=== PATIENT | female | born 1960 | race Caucasian/White ===

== ENCOUNTER 2017-06-30 16:47 | Inpatient (IN) | payer MEDICARE ==
[2017-06-30] MEDS ORDERED: Dextrose 5% in Water 1,000 ML IV PRN (16:56)
[2017-06-30] MEDS ORDERED: Dextrose 50% Abboject 50 ML SYRINGE SLOW IVP PRN (16:56)
[2017-06-30] MEDS ORDERED: Ondansetron HCl/PF 4 MG/2 ML Vial IVP PRN (16:56)
[2017-06-30] MEDS ORDERED: Ondansetron ODT 4 MG TAB PO PRN (16:56)
[2017-06-30] MEDS ORDERED: Rib Fracture Protocol PO SCH (17:00)
[2017-06-30] MEDS ORDERED: Cyclobenzaprine 10 MG TAB PO PRN (18:00)
[2017-06-30 18:09] VITALS: BMI 26.8
[2017-06-30] MEDS: Ibuprofen 800 MG TAB PO SCH (19:23)
[2017-06-30] MEDS: traMADol HCl 50 MG TAB PO SCH (19:23)
[2017-06-30] MEDS: Acetaminophen 500 MG TAB PO SCH (19:24)
--- NOTE | 2017-06-30 19:57 | RAD ---
SINGLE VIEW OF THE CHEST: 06/30/17 COMPARISON: None. HISTORY: Rib fractures and pneumothorax. FINDINGS: Single view of the chest shows a normal sized cardiomediastinal silhouette. There is surgical clips projecting over the mid portion of the thorax. Hardware is seen in the cervical spine. No displaced rib fractures are seen. No underlying pleural thickening or pneumothorax are appreciated. There is n o evidence of consolidation, mass, or pleural effusion. IMPRESSION: Unremarkable exam. POS: H
--- NOTE | 2017-06-30 20:00 | HP ---
DATE OF ADMISSION: 06/30/2017 ATTENDING PHYSICIAN: Kaveh Weber D.O. TRAUMA ACTIVATION: Not applicable. HISTORY OF PRESENT ILLNESS: Dahlia Obregon is a 56-year-old female, who presented to [facility] as a [place] transfer. Per patient, she was letting her pets outside last night when she slippe d and fell. She had felt some chest discomfort, took an extra strength Tylenol and went to bed. Th is morning, she woke up and was short of breath. She presented to [facility] where she was evaluated and found to have multiple left rib fractures with a small pneumothorax. She was transfe rred to [facility] for further care. Upon arrival at our facility, the patient has a chief complaint of chest discomfort 07/19. She is hemodynamically stable. Her O2 sats are 97% on room a ir. ALLERGIES: None. HOME MEDICATIONS: Include pantoprazole, full strength aspirin, lamotrigine, Xanax p.r.n., Lexapro, vitamin D, vitamin E and stool softener. is bringing a medication with doses for reconcilia tion. PAST MEDICAL HISTORY: Significant for degenerative disk disease, arthritis and depression. PAST SURGICAL HISTORY: Hysterectomy, cholecystectomy, tonsillectomy, laminectomy and spinal tumor r emoval. SOCIAL HISTORY: Patient is permanently disabled due to the left arm dysfunction. She denies alcoho l or illicit drug use. She endorses 1 pack per day smoking x45 years. FAMILY HISTORY: Significant for mom with tracheal cancer, father with brain cancer. REVIEW OF SYSTEMS: Patient reports 2-3 days of increased sputum production and cough prior to her a ccident. Otherwise, negative except as indicated in the HPI. PHYSICAL EXAMINATION: VITAL SIGNS: On presentation, temperature 97.6, O2 sat 97% on room air, blood pressure 117/76, hear t rate is 77. GENERAL: Well-developed female, resting in bed, in no acute distress. HEAD: Normocephalic, atraumatic. EYES: Pupils were PERRL. Extraocular movements are intact. NECK: Supple. Trachea is midline. CHEST: Tenderness to palpation. Normal work of breathing, coarse rhonchi/transmitted upper airway sounds. CARDIOVASCULAR: Regular rate and rhythm, no obvious murmurs, rubs or gallops. ABDOMEN: Soft, nontender, nondistended. Bowel sounds are positive. MUSCULOSKELETAL: Moves all extremities x4. NEUROLOGIC: GCS of 15. No focal deficit noted. LABORATORY DATA: Sodium 139, potassium 4.2, chloride 102, carbon dioxide 22, BUN 14, creatinine 0.8 0, glucose 96. WBC 13.5, hemoglobin 14.6, hematocrit 44.3, platelet count 211. RADIOGRAPHIC FINDINGS: CT of the chest, official read is not available at this time, but there is a small anterior apical pneumothorax, left-sided with multiple left rib fractures. ASSESSMENT: 1. Status post mechanical fall. 2. Acute traumatic pain. 3. Left rib fracture. 4. Left pneumothorax. PLAN: Admit to trauma services, repeat chest x-ray now and in a.m. Pain management via rib fractur e protocol. A.m. labs. Plan for admission has been discussed with the patient. The patient has be en seen and evaluated by Dr. Weber at the time of this dictation. All questions were answered.
[2017-06-30] MEDS: Famotidine 20 MG TAB PO SCH (21:44)
[2017-06-30] MEDS: Gabapentin 300 MG CAP PO SCH (21:45)
[2017-07-01] MEDS: Acetaminophen 500 MG TAB PO SCH ×5 (00:07→23:55)
[2017-07-01] MEDS: traMADol HCl 50 MG TAB PO SCH ×3 (00:07→15:50)
[2017-07-01] MEDS: Ibuprofen 800 MG TAB PO SCH ×5 (00:07→23:56)
[2017-07-01 06:42] LABS: #Eosinphils 0.2 thou/uL (0.0-0.7); #Lymphocytes 2.3 thou/uL (1.20-3.40); #Monocytes 0.7 thou/uL (0.11-0.59); #Neutrophils 6.7 thou/uL (1.40-6.50); %Basophils 0.4 % (0.0-1.0); %Lymphocytes 22.8 % (21.0-51.0); Hematocrit 40.7 % (36.0-47.0); Mean Platelet Volume 7.8 fL (7.4-10.4); Red Blood Cell (RBC) Count 4.16 mill/uL (4.20-5.40); White Blood Cell (WBC) Count 9.9 thou/uL (4.8-10.8)
[2017-07-01 06:58] LABS: Anion Gap 15 mmol/L (10-20); BUN (Urea Nitrogen) 15 mg/dL (9.8-20.1); Calc. Creatinine Clearance 74 mL/min (70-130); Calcium 9.5 mg/dL (7.8-10.44); Carbon Dioxide 22 mmol/L (22-29); Chloride 107 mmol/L (98-107); Estimated GFR-MDRD 70; Magnesium 1.8 mg/dL (1.6-2.6); Phosphorus 4.3 mg/dL (2.3-4.7)
--- NOTE | 2017-07-01 08:32 | RAD ---
PORTABLE CHEST HISTORY: Follow up rib fracture. FINDINGS: There are some surgical clips that overly the left superior mediastinum region. Anterior cervical f usion changes are noted of the lower cervical spine. Mild linear, horizontal parenchymal changes ar e noted in both bases, possibly some minimal subsegmental atelectasis. No evidence for significant pneumothorax, pleural effusion, or pneumonia. IMPRESSION: Stable chest. No significant pneumothorax. POS: OFF
[2017-07-01] MEDS: Famotidine 20 MG TAB PO SCH ×2 (09:17→20:16)
[2017-07-01] MEDS: Gabapentin 300 MG CAP PO SCH ×2 (09:17→20:16)
[2017-07-01] MEDS ORDERED: traMADol HCl 50 MG TAB PO PRN ×2 (13:36)
[2017-07-02] MEDS: Acetaminophen 500 MG TAB PO SCH ×2 (06:25→14:55)
[2017-07-02] MEDS: Ibuprofen 800 MG TAB PO SCH ×2 (06:25→14:55)
[2017-07-02] MEDS: Famotidine 20 MG TAB PO SCH (08:13)
[2017-07-02] MEDS: Gabapentin 300 MG CAP PO SCH (08:13)
--- NOTE | 2017-07-02 11:45 | RAD ---
AP VIEW CHEST: 07/02/2017 HISTORY: Patient with pneumothorax. Rib fractures. COMPARISON: 07/01/2017 FINDINGS: AP view chest demonstrates previous lower cervical spinal fusion. Surgical dalila are also seen in the left medial upper lobe region of the lung. The lungs are well aerated. No evidence of hemotho rax or pneumothorax is seen. No obvious evidence of rib fractures seen. no evidence of effusions s een. IMPRESSION: Unremarkable AP view chest, not significantly changed since the previous day's exam. POS: [facility]
[2017-07-02 12:36] LABS: #Basophils 0.1 thou/uL (0.0-0.2); #Eosinphils 0.2 thou/uL (0.0-0.7); #Lymphocytes 1.9 thou/uL (1.20-3.40); #Monocytes 0.6 thou/uL (0.11-0.59); #Neutrophils 4.6 thou/uL (1.40-6.50); %Basophils 0.9 % (0.0-1.0); %Eosinophils 3.2 % (0.0-10.0); %Monocytes 8.4 % (0.0-10.0); Hematocrit 42.7 % (36.0-47.0); Mean Platelet Volume 7.9 fL (7.4-10.4); Red Blood Cell (RBC) Count 4.36 mill/uL (4.20-5.40); White Blood Cell (WBC) Count 7.4 thou/uL (4.8-10.8)
[2017-07-02 12:51] LABS: ALT (SGPT) 22 U/L (8-55); AST (SGOT) 35 U/L (5-34); Alkaline Phosphatase 45 U/L (40-150); Anion Gap 15 mmol/L (10-20); BUN (Urea Nitrogen) 13 mg/dL (9.8-20.1); Bilirubin, Total 0.5 mg/dL (0.2-1.2); Calc. Creatinine Clearance 77 mL/min (70-130); Calcium 9.7 mg/dL (7.8-10.44); Carbon Dioxide 20 mmol/L (22-29); Chloride 108 mmol/L (98-107); Estimated GFR-MDRD 73; Globulin 2.9 g/dL (2.4-3.5); Phosphorus 4.2 mg/dL (2.3-4.7); Protein, Total 6.7 g/dL (6.0-8.3)
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
[2017-07-02 14:45] VITALS: BP 142/74; TEMP 97.1
--- NOTE | 2017-07-02 18:20 | DIS ---
DATE OF ADMISSION: 06/30/2017 DATE OF DISCHARGE: 07/02/2017 ADMISSION DIAGNOSES: 1. Status post fall from a standing height. 2. Left rib fracture. 3. Left pneumothorax. 4. Acute traumatic pain. CONSULTATIONS: None. PROCEDURES: None. SUMMARY: The patient is a 56-year-old woman who was reportedly at home with her pets when she went to pick something up and she fell over. The patient had left-sided chest pain, went to [facility] in [place], underwent evaluation and examination and was noted to have the above injuries at which time she was transferred here to [facility] for evaluation a nd admission by the Trauma Service. The patient was evaluated and admitted to our service. Over next 2 days, she will be working with physical and occupational therapy and would eventually be ab le to be discharged home. Of note, it was discovered that the patient was self-medicating with Xana x out of her purse. She had not revealed to the nurses with her home meds, causing the patient to a ppear somewhat intoxicated and subsequently she was evaluated with a CT scan of the brain, which was unremarkable and labs which were also unremarkable. Upon discussion with her , he felt that she has been possibly overmedicating herself and self-medicating herself with these medications and he contributed the fall that she had to also using these medications. He felt safe taking her home and will safeguard these medications and discuss it with her primary care provider. The patient lorin sullivan follow up with us in the Trauma Clinic in 2 weeks, sooner as necessary or may follow up with her [facility] care provider in [place].
== END 2017-07-02 14:12 | disposition home or self-care (01) | DRG 200 ==
LOC: SURG A 16:47
PROVIDERS: ADMIT Surgery; ATTEND Surgery
DX: S27.0XXA Traumatic pneumothorax, initial encounter (principal); S22.42XA Multiple fractures of ribs, left side, initial encounter for closed fracture; W01.0XXA Fall on same level from slipping, tripping and stumbling without subsequent striking against object, initial encounter; F32.9 Major depressive disorder, single episode, unspecified; M19.90 Unspecified osteoarthritis, unspecified site; F17.210 Nicotine dependence, cigarettes, uncomplicated; M81.0 Age-related osteoporosis without current pathological fracture; R46.89 Other symptoms and signs involving appearance and behavior; Z91.14 Patient's other noncompliance with medication regimen
CPT/HCPCS: 36415; 70450; 71010; 80048; 80053; 83735; 84100; 85025; 94640; J7620